=== PATIENT | male | born 2000 | race Caucasian/White ===

== ENCOUNTER 2022-08-08 08:10 | Emergency (ER) | payer OTHER ==
[2022-08-08 08:25] VITALS: BP 129/78; PULSE 65; RESP 20; TEMP 98.1; BMI 27.5
[2022-08-08] MEDS ORDERED: IBUPROFEN 600 MG TABLET (FP) PO ONE ×2 (08:56→09:10)
== END 2022-08-08 10:13 | disposition home or self-care (01) ==
LOC: JERFT 08:10 → JER 08:10 → JERFT 10:13
DX: S70.12XA Contusion of left thigh, initial encounter (principal); V03.10XA Pedestrian on foot injured in collision with car, pick-up truck or van in traffic accident, initial encounter
CPT/HCPCS: 71046-TC-FY; 73070-TC-LT-FY; 73502-TC-LT-FY; 73552-TC-LT-FY; 99284-25

== ENCOUNTER 2023-07-30 07:33 | Emergency (ER) | payer SELFPAY ==
[2023-07-30 08:25] VITALS: BP 128/62; PULSE 98; RESP 20; TEMP 100.4; BMI 26.2
[2023-07-30] MEDS ORDERED: FAMOTIDINE 20 MG TABLET PO ONE (08:44)
[2023-07-30] MEDS ORDERED: ACETAMINOPHEN 325 MG TABLET (FP) PO ONE (08:44)
[2023-07-30] MEDS ORDERED: ONDANSETRON *ODT* 4 MG TABLET SL ONE (08:44)
[2023-07-30] MEDS ORDERED: ONDANSETRON *ODT* 4 MG TABLET ONE (08:49)
[2023-07-30] MEDS ORDERED: FAMOTIDINE 20 MG TABLET ONE (08:49)
[2023-07-30] MEDS ORDERED: ACETAMINOPHEN 325 MG TABLET (FP) ONE (08:50)
== END 2023-07-30 09:37 | disposition home or self-care (01) ==
LOC: JER 07:33
DX: R50.9 Fever, unspecified (principal); R05.9 Cough, unspecified; R11.10 Vomiting, unspecified; Z20.822 Contact with and (suspected) exposure to COVID-19
CPT/HCPCS: 0241U-QW; 99283-25; Q0162